=== PATIENT | female | born 2000 | race Caucasian/White ===

== ENCOUNTER 2025-07-10 13:03 | Outpatient (AMB) | payer BC, SELFPAY ==
--- NOTE | 2025-07-10 13:06 | A.OFFPC_ITS ---
Vital Signs 07/10/25 13:13 Height 5 ft 8.11 in Weight 139 lb 4 oz BMI 21.1 BP 105/72 Blood Pressure Location Lt brachial Position Sitting Respiration 16 Pulse 61 Pulse Source Pulse Oximeter Temp 97.9 F Temp Source Temporal Artery Scan Pulse Oximetry (%) 99 Oxygen Delivery Method Room Air Intake Visit Reasons: establish care Adhesive Primer Required: No Accompanied by: Self / Same As Patient Allergies No Known Allergies Allergy (Verified 07/10/25 13:36) Medication List - Last Reconciled 07/10/25 by Christiane Damon PA-C fluoxetine 40 mg PO DAILY Tobacco use date assessed: 07/10/25 Dental Screening Dental Screen Date: 07/10/25 Did you have a dental visit in the last 12 months?: Yes Did you have a dental problem in the last 6 months where you did not have access to dental care?: No Was dental information given to patient?: Patient has dentist HPI establish care HPI Details The patient is a 24-year-old female presenting for establishment of primary care, annual physical examination and evaluation of anxiety management. The patient has been on fluoxetine for anxiety since April, with dosage adjustmen ts from 10 mg to 40 mg under the supervision of her psychiatrist, Delicia Higuera, via telehealth. She reports satisfaction with her current psychiatric care. The patient expresses concern about potential blood pressure issues due to her younger sister's diagnosis of hypertension, despite her sister's healthy lifestyle. However, the patient's blood pressure was noted to be normal during this visit. The patient has a significant family history of gastrointestinal and colon cancers, with her paternal grandmother dying at 57 from gastrointestinal cancer and her maternal grandmother at 58 from colon cancer. Her father had precancerous polyps removed from his colon, and several aunts on her mother's side have had uterine, breast, and colon cancers. The patient denies any current symptoms such as black or bloody stools or unintentional weight loss. 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 Social History - Education: Recently graduated with [employer] in [employer] - Employment: Currently unemployed, [employer] seeking employment in public health - Housing: Recently moved back home afte r six years away at school [facility] Medical History Preventative health care Anxiety Annual physical exam Family History Father Colon polyps Mother High blood pressure Paternal Grandmother GI cancer Maternal Grandmother Colon cancer Paternal Aunt Uterine cancer Breast cancer Colon cancer Social History Housing: House Alcohol intake: current Alcohol intake frequency: a few times a week Patient Tobacco Use Status: Never used Tobacco service: No Current occupational status: unemployed Cognitive needs: No Hearing needs: No Vision needs: No Questionnaire PHQ-9 Over the last 2 weeks, how often have you been bothered by any of the following problems? 1. Little interest or pleasure in doing things: not at all 2. Feeling down, depressed, or hopeless: not at all 3. Trouble falling or staying asleep, or sleeping too much: not at all 4. Feeling tired or having little energy: not at all 5. Poor appetite or overeating: not at all 6. Feeling bad about yourself - or that you are a failure or have let yourself or your family down: not at all 7. Trouble concentrating on things, such as reading the newspaper or watching television: not at all 8. Moving or speaking so slowly that other people could have noticed. Or the opposite - being so fidgety or restless that you have been moving around a lot more than usual: not at all 9. Thoughts that you would be better off or of hurting yourself in some way: not at all Total score: 0 Depression Screening Interpretation: Negative Depression Screening Done: Yes 25698 - PHQ-9 Billing: Yes Source: Developed by Drs. Ye Pires, Mandy Escobedo, Thomas Ro and colleagues, with an educational chante from [employer]. Thrive Questionnaire Date Thrive assessed: 07/10/25 I am a: Patient What is your living situation today?: I have a steady place to live Within the past 12 months, did the food you bought not last and you didn't have the money to get more?: Never true Within the past 12 months, did you worry whether your food would run out before you got money to buy more?: Never true Do you have trouble paying for medicines?: No Do you have trouble getting transportation to medical appointments?: No Do you have trouble paying your heating and electricity bill?: No Do you have trouble taking care of your child, family member or friend?: No Do you have trouble with day-to-day activities such as bathing, preparing meals, shopping, managing finances, etc.?: No Are you currently unemployed and looking for a job?: No Are you interested in more education?: No Please select the resources that you would like help with: None Currently or been in a relationship where the following occur: No concerns reported THRIVE Score: 0 AUDIT C Alcohol Use Questionnaire (AUDIT-C) 1. How often do you have a drink containing alcohol?: 2-3 times a week 2. How many drinks containing alcohol do you have on a typical day when you are drinking?: 1 or 2 3. How often do you have six or more drinks on one occasion?: Never Total Score: 3 Score Reviewed/Action Taken: No GERMANIA-7 AMB Questionnaire GERMANIA-7 Date GERMANIA - 7 assessed: 07/10/25 Feeling nervous, anxious, or on edge: 1 = Several days Not being able to stop or control worryin = More than half the days Worrying too much about different things: 2 = More than half the days Trouble relaxin = Several days Being so restless that it is hard to sit still: 0 = Not at all Becoming easily annoyed or irritable: 2 = More than half the days Feeling afraid as if something awful might happen: 0 = Not at all Total GERMANIA-7 score (0-4 normal; 5-9 mild; 10-14 moderate; 15-21 severe): 8 Source: Developed by Drs. Ye Pires, Mandy Escobedo, Thomas Ro and colleagues, with an educational chante from [employer]. GERMANIA-7 Assessment Billing GERMANIA-7 Assessment Tool: GERMANIA-7 Assessment 80346 Review of Systems Const Details: - Cardiovascular: Denies chest pain, palpitations, or syncope - Gastrointestinal: Denies black or bloody stools, unintentional weight loss - Endocrine: Denies thyroid disease - Neurological: Denies headaches, dizziness, or balance issues All systems reviewed & are unremarkable except as noted in HPI and below Physical exam (Primary Care) Vital Signs: Last Vital Signs Temp 97.9 F 07/10/25 13:13 Pulse 61 07/10/25 13:13 Resp 16 07/10/25 13:13 BP 105/72 07/10/25 13:13 Pulse Ox 99 07/10/25 13:13 Oxygen Delivery Method Room Air 07/10/25 13:13 Care Plan Goal for BP management: <140/90 at Goal BMI result Body Mass Index 21.1 normal bmi Tobacco/Smoking Status: Tobacco use Status Tobacco use date assessed 07/10/25 07/10/25 13:12 Patient Tobacco Use Status Never used Tobacco 07/10/25 13:18 PHQ-9: PHQ-9 Score PHQ-9: Total score 0 07/10/25 13:36 Depression Screening Interpretation: Negative Thrive Assessment: Date of Thrive Assessment Date Thrive assessed 07/10/25 07/10/25 13:12 Currently or been in a relationship where the following occur: No concerns reported Const Other: Appearance: Alert. Oriented X3. No acute distress. Head: Normal external exam. Normocephalic. Atraumatic. Eyes: Pupils are equal, round, and reactive to light. Extraocular movements intact. Conjunctiva and sclera normal. Eyelids normal. Ears: External auditory canal normal. Tympanic membranes normal. Throat: Pharynx normal. Uvula midline. Moist mucous membranes. Neck: Normal inspection. Neck supple. Full range of motion. No adenopathy. Thyroid Normal. No meningeal signs. No neck mass noted. Cardiovascular: Normal heart rate and rhythm. Heart sound normal. No murmurs noted. Pulses normal throughout. Respiratory: No respiratory distress. Painless inspiration. Breath sounds normal. No wheezes/rales/rhonchi noted. No accessory muscle usage noted or decreased air movement noted. Abdomen: Soft and nontender. No distention noted. No organomegaly noted. Back: No costovertebral angle tenderness. Full range of motion noted. Skin: Skin warm and dry. Normal skin color. Normal skin turgor. No rashes/lesions/lacerations noted. Extremities: No lower extremity edema. Extremities exhibit normal range of motion. Extremities nontender. Neuro: Oriented X 3. No motor deficit. No sensory deficit. Reflexes normal. Coding Level of Care Code New Pt Level 4 (31945) New Pt Prev Care 18-39yr(57010 Diagnoses Annual physical exam Z00.00 Anxiety F41.9 Preventative health care Z00.00 Additional Codes GERMANIA-7 Assessment Billing - GERMANIA-7 Assessment Tool: GERMANIA-7 Assessment 64727 ([id number]) PHQ-9 - 54091 - PHQ-9 Billing: Yes ([id number]) Assessment & Plan Assessment & Plan (1) Annual physical exam: Code(s): Z00.00 - Encounter for general adult medical examination without abnormal findings Category: Medical (2) Anxiety: Code(s): F41.9 - Anxiety disorder, unspecified Category: Medical Plan: The patient will continue fluoxetine under the supervision of her psychiatrist, Delicia Higuera, with ongoing telehealth consultations. (3) Preventative health care: Code(s): Z00.00 - Encounter for general adult medical examination without abnormal findings Category: Medical Plan: The patient is referred to Gastroenterology for evaluation of her significant family history of gastrointestinal and colon cancers to determine the need for an early colonoscopy. Plan Plan Patient was informed and verbally consented to the use of an ambient scribe for clinic note documentation during this visit. 1. Anxiety The patient will continue fluoxetine under the supervision of her psychiatrist, Delicia Higuera, with ongoing telehealth consultations. 2. Preventative Care: Referral To Gastroenterology For Potential Early Colonoscopy Due To Family History The patient is referred to Gastroenterology for evaluation of her significant family history of gastrointestinal and colon cancers to determine the need for an early colonoscopy. I discussed with the patient the importance of continuing her current anxiety management plan with fluoxetine under her psychiatrist's care. We also talked a bout her family history of gastrointestinal and colon cancers, and I recommended a referral to Gastroenterology to assess the need for an early colonoscopy. I advised her on the importance of regular physical exams and blood work, given her lack of recent medical evaluations. Orders: Orders Complete Blood Count Auto Diff Today Z00.00 - Encounter for general adult medical examination without abnormal findings Lipid Panel Today Z00.00 - Encounter for general adult medical examination without abnormal findings Liver Panel Today Z00.00 - Encounter for general adult medical examination without abnormal findings Vitamin D 25-OH Total Today Z00.00 - Encounter for general adult medical examination without abnormal findings C Reactive Protein Today Z00.00 - Encounter for general adult medical examination without abnormal findings Comprehensive [place]. Panel Fast Today Z00.00 - Encounter for general adult medical examination without abnormal findings Magnesium Today Z00.00 - Encounter for general adult medical examination without abnormal findings Hemoglobin A1c Today Z00.00 - Encounter for general adult medical examination without abnormal findings TSH reflex Free T4 Today Z00.00 - Encounter for general adult medical examination without abnormal findings Vitamin B12 and Folate Today Z00.00 - Encounter for general adult medical examination without abnormal findings Referrals Gastroenterology Referral Z12.11 - Encounter for screening for malignant neoplasm of colon Patient Instructions: - Continue taking fluoxetine as prescribed by your psychiatrist. - Follow up with Gastroenterology for evaluation of family history and potential early colonoscopy. - Schedule and complete fasting blood work as discussed. - Maintain regular physical exams and follow up as needed.
[2025-07-10 13:13] VITALS: BP 105/72; PULSE 61; RESP 16; TEMP 36.6; O2SAT 99; BMI 21.1
--- OUTSIDE RECORDS SUMMARY | 2025-07-10 14:22 | XMS_ITS | Encounter Summary ---
Author Organization [facility] Address [address] [place] [address] Phone Care Team Providers Care Construction Pit Worker Name Role Phone Maria Esther Davenport MD Primary Care Provider [phone] Encounter Details Date Type Department Care Team (Late st Contact Info) Description 06/24/2017 Documentation [facility] [place] Family Medicine [address], [place] [id number] Family Medicine, Physician [address], [place] [address] Social History Tobacco Use Types Packs/Day Years Used Date Smoking Tobacco: Never Comments:Never smoker Comments Unknown Sex and Gender Information Value Date Recorded Sex Assigned at Not on file Legal Sex Female 5:16 PM EDT Gender Identity Not on file Sexual Orientation Not on file documented as of this encounter Plan of Treatment Not on file documented as of this encounter Visit Diagnoses Not on filedocumented in this encounter Care Teams Construction Pit Worker Relationship Specialty Start Date End Date Maria Esther Davenport MD [address] [place] [id number] PCP - General Pediatrics 05/17/19 01/15/23 documented as of this encounter
--- OUTSIDE RECORDS SUMMARY | 2025-07-10 14:22 | XMS_ITS | Encounter Summary ---
Author Organization [facility] Address [address] [place] [address] Phone Care Team Providers Care Java Developer Name Role Phone Maria Esther Davenport MD Primary Care Provider [phone] Encounter Details Date Type Department Care Team (Late st Contact Info) Description 12/22/2016 Documentation [facility] [place] Family Medicine [address] [place] [place], [place] [phone] Family Medicine, Physician [address], [place] [address] Social History Tobacco Use Types Packs/Day Years [...] on filedocumented in this encounter Care Teams Java Developer Relationship Specialty Start Date End Date Maria Esther Davenport MD [address] [place] [address] PCP - General Pediatrics 05/17/19 01/15/23 documented as of this encounter
--- OUTSIDE RECORDS SUMMARY | 2025-07-10 14:22 | XMS_ITS | Encounter Summary ---
Author Organization [facility] Address [address] [place] [address] Phone Care Team Providers Care Utility Locate Technician Name Role Phone Maria Esther Davenport MD Primary Care Provider [phone] Encounter Details Date Type Department Care Team (Late st Contact Info) Description 12/04/2016 Documentation [facility] [place] [address], [place] [phone] Family Medicine, Physician [address], [place] [phone] Social History Tobacco Use Types Packs/Day Years [...] on filedocumented in this encounter Care Teams Utility Locate Technician Relationship Specialty Start Date End Date Maria Esther Davenport MD [address] [place] [address] PCP - General Pediatrics 05/17/19 01/15/23 documented as of this encounter
--- OUTSIDE RECORDS SUMMARY | 2025-07-10 14:22 | XMS_ITS | Encounter Summary ---
Author Organization [facility] Address [address] [place] [address] Phone Care Team Providers Care County Director Name Role Phone Maria Esther Davenport MD Primary Care Provider [phone] Encounter Details Date Type Department Care Team (Late st Contact Info) Description 12/30/2016 Documentation [facility] [place] [address], [place] [phone] Family Medicine, Physician [address], [place] [address] Social History Tobacco Use Types Packs/Day Years [...] on filedocumented in this encounter Care Teams County Director Relationship Specialty Start Date End Date Maria Esther Davenport MD [address] [place] [address] PCP - General Pediatrics 05/17/19 01/15/23 documented as of this encounter
--- OUTSIDE RECORDS SUMMARY | 2025-07-10 14:22 | XMS_ITS | Encounter Summary ---
Author Organization [facility] Address [address] [place] [address] Phone Care Team Providers Care Software Quality Test Engineer Name Role Phone Maria Esther Davenport MD Primary Care Provider [phone] Encounter Details Date Type Department Care Team (Late st Contact Info) Description 05/26/2017 Documentation [facility] [place] Family Medicine [address], [place] [phone] Family Medicine, Physician [address] [place], [place] [address] Social History Tobacco Use Types Packs/Day Years [...] on filedocumented in this encounter Care Teams Software Quality Test Engineer Relationship Specialty Start Date End Date Maria Esther Davenport MD [address] [place] [address] PCP - General Pediatrics 05/17/19 01/15/23 documented as of this encounter
--- OUTSIDE RECORDS SUMMARY | 2025-07-10 14:22 | XMS_ITS | Encounter Summary ---
Author Organization [facility] Address [address] [place] [address] Phone Care Team Providers Care Millinery Salesperson Name Role Phone Maria Esther Davenport MD Primary Care Provider [phone] Encounter Details Date Type Department Care Team (Late st Contact Info) Description 05/25/2017 [place]ation [facility] [place] [address], [place] [address] Family Medicine, Physician [address], [place] [address]85[address] Social History Tobacco Use Types Packs/Day Years [...] on filedocumented in this encounter Care Teams Millinery Salesperson Relationship Specialty Start Date End Date Maria Esther Davenport MD [address] [place] [address] PCP - General Pediatrics 05/17/19 01/15/23 documented as of this encounter
--- OUTSIDE RECORDS SUMMARY | 2025-07-10 14:22 | XMS_ITS | Encounter Summary ---
Author Organization [facility] Address [address] [place] [address] Phone Care Team Providers Care Film Writer Name Role Phone Maria Esther Davenport MD Primary Care Provider [phone] Encounter Details Date Type Department Care Team (Late st Contact Info) Description 12/04/2016 Documentation [facility] [place] [address] [place], [place] [phone] Family Medicine, Physician [address] [place] [phone] Social History Tobacco Use Types Packs/Day Years [...] on filedocumented in this encounter Care Teams Film Writer Relationship Specialty Start Date End Date Maria Esther Davenport MD [address] [place] [address] PCP - General Pediatrics 05/17/19 01/15/23 documented as of this encounter
--- OUTSIDE RECORDS SUMMARY | 2025-07-10 14:22 | XMS_ITS | Clinical Summary ---
Author Organization [facility] Address [address] [place] [id number] Phone Care Team Providers Care Leverman Name Role Phone Unavailable Primary Care Provider Unavailabl e Allergies No known active allergies Medications norethindrone-et hinyl estradiol 1-20 MG-MCG per tablet Take 1 tablet by mouth daily. 11/14/2019 Active Active Problems Problem Noted Date Diagnosed Date Refused influenza vaccine 11/15/2019 Immunizations Immunization Administration Dates Next Due DTaP 5 01/21/2005, 1,02/02/2001, 001 HPV Vaccine 9 Valent 07/07/2016 HPV, Quadrivalent 03/13/2014,12/14/2013 Hep A, ped/adol 07/07/2016,06/27/2015 Hep B, ped/adol 08/09/2001,2000,2000 Hib (PRP-T) 01/11/2002, 1,02/02/2001, 001 IPV 01/21/2005, 1,02/02/2001, 001 Influenza, injectable, trivalent 08/08/2009 MMR 01/21/2005,10/12/2001 Meningococcal B Trumenba 04/30/2020 Meningococcal Conj (Menactra) MCV4P 07/07/2017,0 08/05/2012 Pneumococcal Conjugate 04/13/2001,02/02/2001, Tdap 08/05/2012 Varicella 08/08/2009,10/12/2001 Family History Relation Name Status Comments Brother Maulik Alive Brother: Alive and well Father Maulik Alive Father: Alive a nd well Mother Veronica Alive Mother: Alive a nd well Other No family histo ry of ADD/ADHD, No family history of Migraines, No family history of Deafness, No family history of Seizure disorder, Family history of Diabetes mellitus, No family history of Strabismus, No family history of Asthma, Family history of Hypertension, Family history of Hyperlipidemia, No family history of Developmental dislocation of hip, No family history of *CVA/Stroke, Family history of Lymphoma, No family history of *Thrombophilia, No family history of *Sudden /IN under 55, No family history of *Dental caries, No family history of *Heart Disease, No family history of Obesity Sister 1 Sheree Alive Sister: Alive a nd well, Alive and well Sister 2 Zora Alive Sister: Alive a nd well, Alive and well Social History Tobacco Use Types Packs/Day Years Used Date Smoking Tobacco: Never Smokeless Tobacco: Never Comments:Never smoker Alcohol Use Standard Drinks/Week Comments No 0 (1 standard drink = 0.6 oz pur e alcohol) Hunger/Food Answer Date Recorded No 08/11/2020 Stable Housing Answer Date Recorded No 08/11/2020 Transportation Concerns Answer Date Rec orded No 08/11/2020 Hazards in Home Answer Date Recorded No 09/29/2020 Financing Utilities Answer Date Recorde d No 09/29/2020 Safety at Home Answer Date Recorded No 09/29/2020 Outside Support Answer Date Recorded No 09/29/2020 Understanding Health Concerns Answer Da te Recorded No 09/29/2020 Financing Health Concerns Answer Date R ecorded No 09/29/2020 Missing School or Work Answer Date Andrae rded No 09/29/2020 Comments No Sex and Gender Information Value Date Recorded Sex Assigned at Not on file Legal Sex Female 5:16 PM EDT Gender Identity Not on file Sexual Orientation Not on file Last Filed Vital Signs Vital Sign Reading Time Taken Comments Blood Pressure 102/64 11/15/2019 10:19 AM EST Pulse 81 11/15/2019 10:19 AM EST Temperature 36.8 C (98.2 F) 06/23/2019 4:48 PM EDT Respiratory Rate 16 11/15/2019 10:19 AM EST Oxygen Saturation - - Inhaled Oxygen Concentration - - Weight 64.6 kg (142 lb 6.4 oz) 11/15/2019 10:19 AM EST Height 171 cm (5' 7.32 ) 11/15/2019 10:19 AM EST Body Mass Index 22.09 11/15/2019 10:19 AM EST Plan of Treatment Health Maintenance Due Date Last Done Comments Men B Vaccine (2 of 2 - Trumenba SCDM 2-dose series) 10/30/2020 04/30/2020 DTaP,Tdap,and Td Vaccines (6 - Td or Tdap) 08/05/2022 08/05/2012, 01/21/2005, 04/13/2001, Additional history exists COVID-19 Vaccine ( season) 2024 Influenza Vaccines (#1) 2025 08/08/2009 Pneumococcal Vaccine Aged Out 04/13/2001, 02/02/2001, 2000 No longer eligible based on patient's age to complete this topic Hepatitis B Vaccines Completed 08/09/2001, 2000, 2000 HIB Vaccines Completed 01/11/2002, 03/17, 02/02/2001, Additional history exists IPV Vaccines Completed 01/21/2005, 03/17, 02/02/2001, Additional history exists MMR Vaccines Completed 01/21/2005, 10/12/2001 Varicella Vaccines Completed 08/08/2009, 10/12/2001 HPV Vaccines Completed 07/07/2016, 02/15, 12/14/2013 Hepatitis A Vaccines Completed 07/07/2016, 06/27/20 15 Meningococcal Vaccine Completed 07/07/2017, 012 Procedures * Due to [place] [employer] law, this organization might not be sharing sensitive test results. Procedure Name Priority Date/Time Associated Diagnosis Comments CHLAMYDIA AND GONORRHEA, AMPLIFIED Routine 11/15/2019 10:50 AM EST Well adult exam from Last 3 Months or Most Recently Relevant to Health Maintenance Results * Due to [place] [employer] law, this organization might not be sharing sensitive test results. * Chlamydia and Gonorrhea, Amplified (11/15/2019 10:50 AM EST) Chlamydia Trachomatis, DNA Probe NEGATIVE (NEG) [facility] Comment: No Chlamydia Trachomatis RNA detected in this patient's sample (REFERENCE RANGE/NORMAL VALUE: NOT DETECTED) Note: This test uses rubbish collector- mediated amplification method to detect rRNA from C. Trachomatis URINE GC AMP PROBE NEGATIVE (NEG) [facility] Comment: No Neisseria Gonorrhoeae RNA detected in this patient's sample (REFERENCE RANGE/NORMAL VALUE: NOT DETECTED) NOTE: This test uses rubbish collector-mediated amplification method to detect rRNA from N.Gonorrhoeae. A negative result does not preclude infection. In the case of a negative urine result, testing of an endocervical(female) or urethral (male) specimen is recommended if there is high clinical suspicion of infection. Due to very high sensitivity of Nucleic Acid Amplification Test, false positive results may occur. Therefore, specimen handling is extremely important. In patients in whom the disease is unlikely, additional sample for testing should be considered after an initial positive result. The performance characteristics of this test have not been evaluated in children. The Aptima Combo2 assay is not intended for the evaluation of suspected sexual abuse or for other medico-legal indications. The ordering provider should assess if the patient had consensual sex without risk of sexual abuse. Consult the [facility] if needed. Contact phone number . Therapeutic failure or success cannot be determined with the Aptima Combo2 assay since nucleic acid may persist following appropriate antimicrobial therapy. The Centers for Disease Control and Prevention (CDC) recommends confirmatory retesting using culture or a different nucleic acid amplification test when positive results occur, if indicated. Testing performed or reported by [facility], a Service of [facility], [facility] [place] [address] Car Ferro MD, Recycling Or Rubbish Collector Urine 11/15/2019 10:5 0 AM EST 11/15/2019 7:50 PM EST us Maria Esther Davenport MD LAB MICROBIOLOGY - GENERAL OR DERABLES Final Result [facility] from Last 3 Months or Most Recently Relevant to Health Maintenance
--- OUTSIDE RECORDS SUMMARY | 2025-07-10 14:22 | XMS_ITS | Encounter Summary ---
Author Organization [facility] Address [address] [place] [address] Phone Care Team Providers Care Business Solution Analyst Name Role Phone Maria Esther Davenport MD Primary Care Provider [phone] Encounter Details Date Type Department Care Team (Late st Contact Info) Description 07/29/2017 Conversion Encounter [facility] [place] [address] [place] [address] Social History Tobacco Use Types Packs/Day Years [...] on filedocumented in this encounter Care Teams Business Solution Analyst Relationship Specialty Start Date End Date Maria Esther Davenport MD [address] [place] [address] PCP - General Pediatrics 05/17/19 01/15/23 documented as of this encounter
--- OUTSIDE RECORDS SUMMARY | 2025-07-10 14:23 | XMS_ITS | Clinical Summary ---
Author Organization [facility] Address [address] [place] [phone] Phone Care Team Providers Care Electronics Assembler And Tester Name Role Phone Vidhi Love MD Primary Care Provider [phone] Allergies No known active allergies Medications Hospital, Clinic, or Other Facility Administered Medication Ordered Dose Route Frequency Start Date End Date Status levonorgestreL (KYLEENA) 17.5 mcg/24 hr (5 yrs) 19.5 mg intrauterine device 1 eachIndications:Encounter for IUD removal and reinsertion 1 each Utrn Every 5 years 06/30/2024 Active Active Problems Problem Noted Date Diagnosed Date IUD (intrauterine device) in place 10/10/2020 Overview (06/30/2024): Kyleena 06/30/24 Immunizations Immunization Administration Dates Next Due Dtap, 5 Pertussis Antigens 01/21/2005,,02/02/2001,12/03 HPV,quadrivalent 03/13/2014,12/14/2013 HPV9 07/07/2016 Hepatitis A, ped/adol, 2 dose 07/07/2016, 015 Hepatitis B 08/09/2001,2000,2000 Hib,PRP-T 01/11/2002, 1,02/02/2001,12/03 INFLUENZA, SPLIT VIRUS, TRIV ALENT W/ PRESERVATIVE IM 08/08/2009 IPV 01/21/2005, 1,02/02/2001,12/03 MMR 01/21/2005,10/12/2001 Meningococcal B, recombinant (MenB-FHbp) 04/30/2020 Meningococcal MCV4P 07/07/2017,08/05/2012 Pneumococcal conjugate, PCV 7 04/13/2001, 001,2000 Tdap 08/05/2012 Varicella 08/08/2009,10/12/2001 Family History Medical History Relation Comments No Known Problems Father No Known Problems Mother Relation Status Comments Father Alive Maternal Grandfather Maternal Grandmother Mother Alive Social History Tobacco Use Types Packs/Day Years Used Date Smoking Tobacco: Never Smokeless Tobacco: Never Alcohol Use Standard Drinks/Week Comments No 0 (1 standard drink = 0.6 oz pur e alcohol) Education Answer Date Recorded Are you interested in more education? Not on cory e 03/13/2023 Are you concerned about learning? Not on file 03/13/2023 No 03/13/2023 No 03/13/2023 Digital Access Answer Date Recorded No 04/11/2023 No 04/11/2023 No 04/11/2023 Reliable internet access at home? Not on file 04/11/2023 Device with a working camera? Not on file Comments No Sex and Gender Information Value Date Recorded Sex Assigned at Not on file Legal Sex Female 3:31 PM EDT Gender Identity Not on file Sexual Orientation Not on file Last Filed Vital Signs Vital Sign Reading Time Taken Comments Blood Pressure 94/58 06/30/2024 9:29 AM EDT Pulse - - Temperature - - Respiratory Rate - - Oxygen Saturation - - Inhaled Oxygen Concentration - - Weight 65.6 kg (144 lb 9.6 oz) 06/30/2024 9:29 A M EDT Height 172.7 cm (5' 8 ) 11/30/2020 12:15 PM EST Body Mass Index 21.99 11/30/2020 12:15 PM EST Plan of Treatment Health Maintenance Due Date Last Done Comments DEPRESSION SCREENING 2012 SMOKING Hx and SMOKELESS TOBACCO SCREENING 2013 HEPATITIS C SCREENING 2018 HIV ONE-TIME SCREENING (18-65 YEARS) 2018 MENINGOCOCCAL VACCINES (B) (2 of 2 - Trumenba SCDM 2-dose series) 10/30/2020 04/30/2020 CHLAMYDIA SCREENING 11/14/2020 11/14/2019 PAP SMEAR 2021 COVID-19 VACCINE ( season) 2024 01/05/2022, 06/21/2021, 06/03/2021 IUD 06/30/2029 06/30/2024 Adult Td,Tdap Booster 05/07/2033 05/07/2023, 012 PNEUMOCOCCAL VACCINES (0-49 years) Aged Out 04/13/2001, 02/02/2001, 2000 No longer eligible based on patient's age to complete this topic HIB VACCINES Completed 01/11/2002, 03/17, 02/02/2001, Additional history exists HEPATITIS A VACCINES Completed 07/07/2016, 06/27/20 HPV VACCINES Completed 07/07/2016, 02/15, 12/14/2013 MENINGOCOCCAL VACCINES (ACWY) Completed 07/07/2017, 08/05/2012 Medical Devices Implanted Type Area Cork Sorter Device Identifier Shelf Expiration Date Model / Serial / Lot Iud Implanted: (Quantity not on file) Intrauterine Device Procedures Procedure Name Priority Date/Time Associated Diagnosis Comments CHLAMYDIA TRACHOMATIS AND NEISSERIA GONORRHOEAE NUCLEIC ACID DETECTION Routine 11/14/2019 1:32 PM EST Routine screening for STI (sexually transmitted infection) from Last 3 Months or Most Recently Relevant to Health Maintenance Results * Chlamydia Trachomatis and Neisseria Gonorrhoeae Nucleic Acid Detection (11/14/2019 1:32 PM EST) CHLAMYDIA TRACHOMATIS Not Detected Not Detected [facility] NEISERIA GONORRHOEAE Not Detected Not Detected [facility] SPECIMEN TYPE URINE [facility] Urine (Urine) 11/14/2019 1:3 2 PM EST 11/14/2019 2:13 PM EST Daniella Alves NP NON CULTURE MICROBIOLOGY Final Result [facility] [address] [place] [address] from Last 3 Months or Most Recently Relevant to Health Maintenance Insurance [facility] Care Teams Electronics Assembler And Tester Relationship Specialty Start Date End Date Vidhi Love MD PCP - General Unknown Provider Specialty 07/30/18 Additional Source Comments The information contained in this document represents components of the legal health record. It is not the complete legal health record.[facility]
--- OUTSIDE RECORDS SUMMARY | 2025-07-10 14:23 | XMS_ITS | Encounter Summary ---
Author Organization [facility] Address [address] [place] [address] Phone Care Team Providers Care Document Controller Name Role Phone Maria Esther Davenport MD Primary Care Provider [phone] Encounter Details Date Type Department Care Team (Late st Contact Info) Description 03/07/2016 Documentation [facility] [place] Family Medicine [address], [place] [id number] Family Medicine, Physician [address] [id number] Social History Tobacco Use Types Packs/Day Years Used Date Smoking Tobacco: Never Assessed Comments Unknown Sex and Gender Information Value Date Recorded Sex Assigned at Not on file Legal Sex Female 5:16 PM EDT Gender Identity Not on file Sexual Orientation Not on file documented as of this encounter Plan of Treatment Not on file documented as of this encounter Visit Diagnoses Not on filedocumented in this encounter Care Teams Document Controller Relationship Specialty Start Date End Date Maria Esther Davenport MD [address] [place] [phone] PCP - General Pediatrics 05/17/19 01/15/23 documented as of this encounter
== END 2025-07-10 13:49 | disposition home or self-care (01) ==
LOC: HO.HMCSH 13:03
PROVIDERS: PCP Internal Medicine; Visit Provider Physician Assistant Medical
DX: Z00.00 Encounter for general adult medical examination without abnormal findings (principal); F41.9 Anxiety disorder, unspecified

== ENCOUNTER → 2025-07-10 13:03 | Outpatient (BNVA) | payer BC, SELFPAY | PROVIDERS: PCP Internal Medicine; Visit Provider Physician Assistant Medical | DX: Z00.00 Encounter for general adult medical examination without abnormal findings (principal); F41.9 Anxiety disorder, unspecified | CPT/HCPCS: 96127 ==

== ENCOUNTER 2025-07-19 09:04 | Outpatient (REF) | payer BC, SELFPAY ==
[2025-07-19 09:26] LABS: MANUAL DIFF FLAG NO
[2025-07-19 10:12] LABS: Hematocrit 36.5 % (37.0-47.0); Hemoglobin 12.9 g/dl (12.0-16.0); Imm Gran Abs Auto 0.01 X10*3/uL (0.00-0.03); Imm Gran Pct Auto 0.2 % (0.0-0.4); Lymphocytes Absolute Auto 1.5 X10*3/uL (1.2-4.9); Mean Corpuscular HGB Conc 35.3 g/dl (31.0-35.0); Mean Corpuscular Hemoglobin 31.0 pg (27.0-33.0); Mean Corpuscular Volume 87.7 fL (80.0-98.0); NRBC Abs Auto 0.000 X10*3/uL (0.0-0.012); NRBC Pct Auto 0.0 /100WBC (0.0-0.2); Platelet Count 278 X10*3/uL (160-400); Red Blood Count 4.16 X10*6/uL (4.20-5.50); White Blood Count 5.6 X10*3/uL (4.8-10.8)
[2025-07-19 10:21] LABS: Hemoglobin A1C 102.1457 umol/L; Total Hemoglobin (HGBA1C) 3357.0506 umol/L
[2025-07-19 11:02] LABS: Alanine Aminotransferase 15 U/L (0-31); Albumin Level 5.2 g/dL (3.5-5.0); Alkaline Phosphatase 62 U/L (39-117); Anion Gap 13 (12-20); Aspartate Amino Transferase 19 U/L (5-31); Blood Urea Nitrogen 10 mg/dL (9-16); Calcium 9.0 mg/dL (8.4-10.2); Carbon Dioxide 25 mmol/L (22-29); Chloride 107 mmol/L (96-108); Cholesterol 158 mg/dL (<200); Estimated Glomerular Filt Rate > 60; HDL Cholesterol 57 mg/dL (>40); Magnesium 2.2 mg/dL (1.6-2.6); Potassium 4.2 mmol/L (3.3-5.1); Sodium 141 mmol/L (135-145); Total Protein 7.5 g/dL (6.5-8.0); Triglycerides 55 mg/dL (<150)
[2025-07-19 11:23] LABS: Folate 9.7 ng/mL (> or = 4.0); Vitamin B12 321 pg/mL (200-900)
== END 2025-07-19 09:05 | disposition home or self-care (01) ==
LOC: HO.LAB 09:04
PROVIDERS: PCP Internal Medicine; Visit Provider Physician Assistant Medical
DX: Z00.00 Encounter for general adult medical examination without abnormal findings (principal); Z13.6 Encounter for screening for cardiovascular disorders; Z13.1 Encounter for screening for diabetes mellitus
CPT/HCPCS: 36415; 80053; 80061; 80076; 82248; 82306; 82607; 82746; 83036; 83735; 84443; 85025; 86140